=== PATIENT | female | born 1960 | race Caucasian/White ===

== ENCOUNTER 2018-03-03 20:07 | Emergency (ER) | payer BC ==
[~2018-03-03] VITALS: Ht 165.1 cm; Wt 95.3 kg
[~2018-03-03 20:07] MED LIST: DEXILANT PO; FEROSUL325 M1 PO; IBUPROFEN600 MG PO; MOTRIN400 MG PO; NORCO 5-325 TA1 EACH PO; Z.0.CITALOPRAM HBR20 PO; Z.0.COLACE100 MG PO
[2018-03-03] MEDS ORDERED: BUPIVACAINE HCL 0.25% 10ML MPF VIAL INJ ONE ×2 (20:20→20:30)
[2018-03-03] MEDS ORDERED: LIDOCAINE HCL 1% LOCAL INJ 20 ML VIAL ONE (20:20)
[2018-03-03] MEDS ORDERED: LIDOCAINE HCL 1% LOCAL INJ 20 ML VIAL INJ ONE (20:30)
[2018-03-03] MEDS ORDERED: TETANUS/DIPHTHERIA TOX ADULT 0.5 ML SYR IM ONE (20:30)
--- NOTE | 2018-03-03 21:04 | Diagnostic Imaging Report ---
LEFT HAND X-RAY - 3 VIEWS HISTORY: \S\ORDER PLACED BY \S\Y COMPARISON: None available. FINDINGS: Bones: Mild avulsion fracture of the distal left first phalanx. Osseous alignment is within normal limits. Joints: Degenerative changes of the mid and distal interphalangeal joints. Soft tissues: Soft tissue laceration adjacent to the distal left second digit. IMPRESSION: Avulsion fracture of the distal left first phalanx with adjacent soft tissue laceration. Signed by: Dr. Kristina Lennon M.D. on 03/03/2018 9:00 PM
[2018-03-03] MEDS ORDERED: CEFAZOLIN SOD 1 GM VIAL IM STA (21:08)
[2018-03-03] MEDS ORDERED: HYDROCODONE/APAP 10MG-325MG TAB PO ONE (22:00)
== END 2018-03-03 23:00 | disposition home or self-care (01) ==
LOC: ER 20:07
DX: S61.310A Laceration without foreign body of right index finger with damage to nail, initial encounter (principal); S62.660B Nondisplaced fracture of distal phalanx of right index finger, initial encounter for open fracture; W29.3XXA Contact with powered garden and outdoor hand tools and machinery, initial encounter; Y93.H2 Activity, gardening and landscaping; Y92.007 Garden or yard of unspecified non-institutional (private) residence as the place of occurrence of the external cause
CPT/HCPCS: 12001; 73130; 90471; 90714; 99283; J0690; J2001